=== PATIENT | female | born 1945 | race Caucasian/White ===

== ENCOUNTER 2024-02-05 13:38 | Outpatient (RCR) | payer MEDICARE, SELFPAY ==
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
--- NOTE | 2024-04-15 14:34 | HP.OT.NRP ---
Patient Information Patient Information: NATALIE ANNE was seen in my office for initial evaluation on 02/05/24. The following Plan of Care was established for this patient: POC Established Initial Frequency: 4 sessions Initial Duration: 6 Months Anticipated Interventions Anticipated Interventions: A/AAROM/PROM, Education re Diagnosis, Manual Lymph Drainage, Education re Life-long lymphedema Management, Education re Skin Care and Precautions, Education re Self Massage Techniques, Education re Correct Donning Tech,Care&Wearing Sched Comp Garments, Caregiver Training and Home Program Last Seen Last Seen: This patient was last seen in our office 02/05/24. Pertinent comments regarding their Occupational therapy will appear below: This 79 year old female seen for dx of lymphedema for evaluation. pt does not schedule additional appointments. discharge from caseload at this time due to lapse in tie of services. At this point I will be discontinuing this patient from occupational therapy. I would be happy to see this patient again in the future if found appropriate by the physician. Thank you! Nano Banks
== END 2024-02-05 19:00 | disposition home or self-care (01) ==
LOC: OT 13:38
PROVIDERS: PCP Nurse Practitioner Family; Referring Provider Nurse Practitioner Family; Visit Provider Nurse Practitioner Family
DX: I89.0 Lymphedema, not elsewhere classified (principal)
CPT/HCPCS: 97165; 97530